=== PATIENT | female | born 1940 | race Caucasian/White ===

== ENCOUNTER 2018-04-25 09:39 | Observation (INO) ==
--- NOTE | 2018-04-25 10:06 | MH ---
cc: Misa Dupree MD DATE OF ADMISSION: 04/25/2018 ADMITTING DIAGNOSIS: Failed left knee arthroplasty, now being admitted for revision of at least the liner and possibly the whole knee. PAST MEDICAL HISTORY: The patient had the left total knee done in December 2003 using a Biomet component, size 65 press-fit femur, 10 insert, and a 67 tibial surface extra small patella. The patient also has a history of atrial fibrillation for which she has been on Eliquis, that was stopped several days ago. She has a history of hypertension, hypothyroidism, and sciatica. She also has a history of a recent urinary tract infection with E. coli, that has been treated. CURRENT MEDICATIONS: 1. Advair. 2. Cefdinir. 3. Clotrimazole. 4. Betamethasone. 5. Digoxin. 6. Levothyroxine. 7. Eliquis. PREVIOUS SURGERIES: Include a gastric bypass as well as the left total knee. REVIEW OF SYSTEMS: Noncontributory. FAMILY HISTORY: Noncontributory. SOCIAL HISTORY: She does not smoke. She drinks alcohol occasionally. ALLERGIES: ALLERGIC TO MORPHINE AND SULFA. POSSIBLE PENICILLIN ALLERGY, ALTHOUGH THE PATIENT STATES SHE IS NOT. SHE STATES SHE DID HAVE AN ALLERGIC REACTION TO STERI-STRIPS WELL. PHYSICAL EXAMINATION: GENERAL: We find a 77-year-old female, well-developed, well-nourished, oriented x 3, complaining of pain and instability of the left knee. VITAL SIGNS: Blood pressure 118/80, pulse 57 and regular, respirations 16, temperature 97.9, pulse oximetry 97% on room air. HEENT: Eyes PERRLA, EOMI. Ears, nose, and mouth are clear. NECK: Supple. LUNGS: Clear. HEART: Regular rate. ABDOMEN: Soft, positive bowel sounds, nontender. EXTREMITIES: Reveal the left knee to be tender with 2+ varus/valgus instability. Neurovascularly intact to her toes. 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 PLAN: She understands the procedure well and plans on going home with home health care after a surgical stay in the hospital. She does have a prescription for postoperative pain control in the office. J. Teodoro Dupree MD JRR/lr , 09:02 AM , 09:08 AM
[2018-04-25] MEDS ORDERED: Clindamycin 900 mg/NS Premix 900 MG/50 ML PIGGYBACK IV.SIG SCH (10:45)
[2018-04-25] MEDS ORDERED: Chlorhexidine 4% Topical 120 APPLIC/120 ML Bottle TOPICAL SCH (10:45)
[2018-04-25] MEDS ORDERED: Clindamycin Inj 900 MG/6 ML Vial ONE (10:50)
[2018-04-25] MEDS ORDERED: Metoprolol Tartrate 25 MG Tablet PO ONE (11:15)
[2018-04-25] MEDS ORDERED: Chlorhexidine Gluconate 2% 1 Pack (2 Cloths) TOPICAL ONE (11:15)
[2018-04-25] MEDS ORDERED: Sodium Chlor 0.9% Inj 80 ML, Bupivacaine Liposo PF 1.3% Inj 20 ML, Bupivacaine PF 0.25%... P-ARTICULR SCH ×3 (11:30)
[2018-04-25] MEDS ORDERED: Tranexamic Acid Inj 1,035 MG in Sodium Chlor 0.9% Inj 100 ML IV.SIG SCH (11:30)
[2018-04-25] MEDS ORDERED: Sodium Chlor 0.9% Inj 500 ML IV.CONT ONE (11:30)
[2018-04-25] MEDS ORDERED: Bupivacaine/Dextrose 0.75% Inj 2 ML Ampul ONE (12:33)
[2018-04-25] MEDS ORDERED: Propofol Inj 500 MG/50 ML Vial ONE (12:34)
[2018-04-25] MEDS ORDERED: Bupivacaine Liposomal PF 1.3% Inj 20 ML Vial ONE (12:52)
[2018-04-25] MEDS ORDERED: Lidocaine PF 1% Inj 5 ML Syringe OTHER ONE (13:15)
[2018-04-25] MEDS ORDERED: Glycopyrrolate Inj 1 MG/5 ML Syringe IV.PUSH ONE (13:15)
[2018-04-25] MEDS ORDERED: Esmolol Bolus Inj 100 MG/10 ML Vial IV.PUSH ONE (13:15)
[2018-04-25] MEDS ORDERED: Neostigmine Inj 5 MG/5 ML Syringe IV.PUSH ONE (13:15)
[2018-04-25] MEDS ORDERED: Acetaminophen 500 MG Tablet PO PRN (13:17)
[2018-04-25] MEDS ORDERED: Post-op Orders (for Pharmacy) OTHER STA (13:21)
[2018-04-25] MEDS ORDERED: Bisacodyl 10 MG Supp RECTAL PRN (13:21)
--- NOTE | 2018-04-25 13:32 | P.DCO ---
- Diagnosis (1) Status post revision of total replacement of left knee Status: Acute - Physical Therapy Order: Evaluate and treat, Improve ambulation, Strength and gait training - Home Health Nursing Order: Medical education - Case Management Consult Yes - Certification I have seen patient Gayla Ortega on 04/25/18. My clinical findings support the need for the requested home health care services because: Limited ability to care for self, High risk of falls I certify that my clinical findings support that this patient is homebound because: Post-op weakness, Unsafe to leave home unassisted
--- NOTE | 2018-04-25 15:34 | P.BOP ---
- Preoperative Diagnosis (1) Failed total left knee replacement - Postoperative Diagnosis (1) Status post revision of total replacement of left knee Date of procedure: 04/25/18 Procedure: Revision Left Total Knee Implants: see implant records Anesthesia: GETA Surgeon: Misa Dupree MD Desk Representative: Dixie Macias Estimated blood loss (mL): 200 Tourniquet time (min): 24 Urine output (mL): 0 (no francis) Pathology: other (Left knee joint fluid) Condition: stable Disposition: PACU
[2018-04-25] MEDS ORDERED: fentaNYL Citrate Inj 100 MCG/2 ML Ampul ONE (15:35)
[2018-04-25] MEDS ORDERED: *HYDROmorphone PF Inj 1 MG/ML Ampul PERIprocedural Use ONLY ONE (15:45)
--- NOTE | 2018-04-25 16:07 | XR ---
EXAM DATE: 04/25/2018 1:21 PM EDT AGE/SEX: 77 years / Female INDICATIONS: Left knee total arthroplasty. CLINICAL DATA: This is the patient's initial encounter. Patient reports that signs and symptoms have been present for 1 day and indicates a pain score of 5/10. MEDICAL/SURGICAL HISTORY: None. None. COMPARISON: [facility], CT KNEE W/O CONTRAST, LEFT, 01/30/2018. . FINDINGS: A total knee arthroplasty is noted. The tibial and femoral components appear well seated. No fracture or dislocation. CONCLUSION: Status post left total knee arthroplasty. Electronically signed by: Edmundo Lopez MD 04/25/2018 4:05 PM EDT
--- NOTE | 2018-04-25 16:08 | MP ---
cc: Misa Dupree MD DATE OF OPERATION: PREOPERATIVE DIAGNOSIS: Mechanical instability left total knee arthroplasty. POSTOPERATIVE DIAGNOSIS: Mechanical instability left total knee arthroplasty. PROCEDURE PERFORMED: Revision of left total knee arthroplasty with liner exchange. SURGEON: Misa Dupree MD. RESEARCH COMPUTING SPECIALIST: MARTHA Lin. ANESTHESIA: General intubation and block. PROCEDURE: The patient was brought to the operating room, placed on the operating table in supine position. After successful induction of general anesthesia, the patient's left knee, thigh, and leg were prepped and draped in the usual manner. A tourniquet inflated on the left upper thigh and set to 300 mmHg pressure after exsanguination of the left lower extremity. Anteromedial incision was then made through the old incision, 10 inches in length, centering over the patella, carried down through subcutaneous tissue through the deep fascia to the joint. Clear serous fluid removed and sent to the lab for STAT Gram stain, which revealed few white cells, no bacteria seen. The knee was flexed and debrided of scar tissue. The liner between the femur and tibia was then removed by removing the clip and then used an osteotome to remove the liner. Liner was found to be extremely torn up and thinned out from use and discarded. The wound irrigated copiously and fragments of the plastic liner were removed all around the knee joint. The femur was found to be intact. The tibia found to be intact. No loosening noted on either side of the femur or tibia and the patella plastic was intact and found to be firmly fixed to the bone and left alone after scar tissue debrided from around it. Different size liners were then tried, found to be most stable with a size 12 x 67, which was selected and placed into the knee joint and clipped into place using the Biomet liner lyles clip. Full range of motion of the knee was then appreciated with no instability and 120 mL of Exparel used around the knee joint for extra pain control. The tourniquet had been deflated. Total tourniquet time was 24 minutes at 300 mmHg pressure. Meticulous hemostasis achieved. The deep fascia was approximated with running #2 Quill. Subcutaneous tissue approximated using interrupted and running 3-0 and 4-0 Quill and Prineo dressing and knee immobilizer. No drain utilized. Estimated blood loss 200 mL. The patient tolerated the procedure well and left the operating room in satisfactory condition. Dixie Macias APRN was present during the entire procedure to include patient positioning and the procedure. The medical necessity of the nurse practitioner assistant golf professional was indicated in this case due to the surgical complexity of the case itself and during the surgical case, the surgical technologist was working the back table while my surgical technologist, OSCAR, was directly assisting me. J. Teodoro Dupree MD JRLavinia/rd , 02:59 PM , 03:09 PM
[2018-04-25] MEDS ORDERED: Tranexamic Acid Inj 1,000 MG in Sodium Chlor 0.9% Inj 100 ML IV.SIG SCH (17:00)
[2018-04-25] MEDS: Clindamycin 600 mg/NS Premix 600 MG/50 ML PIGGYBACK IV.SIG SCH (22:38)
[2018-04-25] MEDS: Senna/Docusate Sodium 8.6/50 MG Tablet PO SCH (22:42)
[2018-04-26] MEDS: Clindamycin 600 mg/NS Premix 600 MG/50 ML PIGGYBACK IV.SIG SCH ×2 (05:26→14:16)
[2018-04-26] MEDS: Levothyroxine 125 MCG Tablet PO SCH (05:31)
[2018-04-26 08:04] LABS: Hematocrit 36.7 % (35.0-46.0); Hemoglobin 12.4 gm/dL (11.6-15.3)
[2018-04-26] MEDS: Senna/Docusate Sodium 8.6/50 MG Tablet PO SCH ×2 (08:45→21:11)
[2018-04-26] MEDS: Ferrous Sulfate 325 MG Tablet PO SCH (08:45)
[2018-04-26] MEDS: Digoxin 125 MCG Tablet PO SCH (08:45)
[2018-04-26] MEDS: Metoprolol Tartrate 50 MG Tablet PO SCH (08:45)
--- NOTE | 2018-04-26 12:31 | P.PNOP ---
Subjective Interval history: Pt comfortable today. No complaints. Physical Exam Vital signs: Vital Signs 04/25/18 12:55 04/25/18 12:58 04/25/18 15:29 Temperature 97.0 F L Pulse Rate 60 76 Respiratory Rate 15 Blood Pressure 154/90 H Pulse Oximetry 100 97 04/25/18 15:45 04/25/18 16:00 04/25/18 16:15 Temperature 96.5 F L Pulse Rate 73 56 L 60 Respiratory Rate 16 16 15 Blood Pressure 150/63 H 175/76 H 165/66 H Pulse Oximetry 99 98 100 04/25/18 16:30 04/25/18 16:50 04/25/18 20:00 Temperature 97.5 F L 97.3 F L Pulse Rate 60 62 60 Respiratory Rate 17 18 18 Blood Pressure 165/65 H 153/74 H 114/80 Pulse Oximetry 100 100 100 04/26/18 00:00 04/26/18 04:00 04/26/18 08:00 Temperature 97.5 F L 97.5 F L 97.7 F Pulse Rate 49 L 55 L 62 Respiratory Rate 17 17 18 Blood Pressure 141/61 H 134/59 L 119/60 Pulse Oximetry 99 96 99 Intake & Output 04/25/18 04/26/18 04/26/18 18:59 06:59 18:59 Intake Total 2160.35 / 2160.35 1088 / 1088 Output Total 200 / 200 Balance 1960.35 / 1960.35 1088 / 1088 Weight 103.5 kg 103.5 kg Intake: IV 1160.35 / 1160.35 1088 / 1088 LR 1000 mL Inj 1,000 ML @ 80 1000 / 1000 988 / 988 mls/hr IV.CONT .[id number] [facility] Rx# :[id number] Cleocin 600 mg/NS Premix 600 mg 100 / 100 In 50 ml @ 100 mls/hr IV.SIG Q8HR [facility] Rx#:[id number] Cleocin 900 mg/NS Premix 900 mg 50 / 50 In 50 ml @ 100 mls/hr IV.SIG MANAGER OF ENGINEERING [facility] Rx#:[id number] Cyklokapron Inj 1,035 MG In NS 110.35 / 110.35 Inj 100 ML @ 200 mls/hr IV.SIG ONCE [facility] Rx#:[id number] Oral 0 / 0 Anesthesia Amount 1000 / 1000 Output: Estimated Blood Loss 200 / 200 Other: # Voids 3 Date of Last Bowel Movement 04/24/18 04/24/18 04/24/18 Weight On Admission 103.5 kg - Constitutional no acute distress Results - Labs CBC & Chem 7: 04/26/18 07:19 Laboratory Results - last 24 hr 04/26/18 07:19 Hgb 12.4 Hct 36.7 Microbiology 04/25/18 14:00 Wound - Knee Gram Stain - Final - Imaging Impressions Knee X-Ray 04/25/18 13:21 CONCLUSION: Status post left total knee arthroplasty. Assessment and Plan - Problem List (1) Status post revision of total replacement of left knee Code(s): Z96.652 - Presence of left artificial knee joint Status: Acute - Attending Attestation Attending Attestation: Dressing and wound dry and intact. No blisters. NV intact to toes. Cont PT. Plan home tomorrow with C and PT. May shower.
[2018-04-26 20:47] VITALS: RESP 16
[2018-04-27 00:30] VITALS: TEMP 97.7
[2018-04-27] MEDS: Levothyroxine 125 MCG Tablet PO SCH (05:23)
[2018-04-27] MEDS: Digoxin 125 MCG Tablet PO SCH (08:02)
[2018-04-27] MEDS: Senna/Docusate Sodium 8.6/50 MG Tablet PO SCH (08:02)
[2018-04-27] MEDS: Metoprolol Tartrate 50 MG Tablet PO SCH (08:03)
[2018-04-27] MEDS: Ferrous Sulfate 325 MG Tablet PO SCH (08:03)
[2018-04-27 08:43] VITALS: BP 130/63; PULSE 59; O2SAT 95
--- NOTE | 2018-04-27 10:05 | P.PNOP ---
Subjective Interval history: Patient mostly comfortable with slightly more pain today than yesterday. Physical Exam Vital signs: Vital Signs 04/26/18 12:00 04/26/18 16:00 04/26/18 20:00 Temperature 97.5 F L 97.6 F 97.5 F L Pulse Rate 67 51 L 77 Respiratory Rate 17 18 16 Blood Pressure 99/53 L 105/61 112/67 Pulse Oximetry 99 96 96 04/27/18 00:00 04/27/18 08:00 Temperature 97.7 F 97.7 F Pulse Rate 41 L 59 L Respiratory Rate 16 16 Blood Pressure 136/64 130/63 Pulse Oximetry 98 95 Intake & Output 04/26/18 04/27/18 04/27/18 18:59 06:59 18:59 Intake Total 1310 / 1310 Balance 1310 / 1310 Weight 103.5 kg Intake: IV 350 / 350 LR 1000 mL Inj 1,000 ML @ 80 300 / 300 mls/hr IV.CONT .[id number] [facility] Rx# :[id number] Cleocin 600 mg/NS Premix 600 mg 50 / 50 In 50 ml @ 100 mls/hr IV.SIG Q8HR [facility] Rx#:[id number] Oral 960 / 960 Other: # Voids 7 3 Date of Last Bowel Movement 04/24/18 04/24/18 - Constitutional no acute distress Results - Labs CBC & Chem 7: 04/26/18 07:19 Microbiology 04/25/18 14:00 Wound - Knee Gram Stain - Final 04/25/18 14:00 Wound - Knee Wound Culture - Preliminary No growth in 48 hours Assessment and Plan - Problem List (1) Status post revision of total replacement of left knee Code(s): Z96.652 - Presence of left artificial knee joint Status: Acute - Attending Attestation Attending Attestation: Patient sitting in a chair. The wound is clean and dry with no drainage. She is neurovascularly intact to her toes and has no calf tenderness. Plan is for the patient to go home today with home health care and physical therapy. Return to the office in 10 days time for recheck. Patient has p.o. pain meds and anticoagulation at home.
[2018-04-27 11:25] LABS: Hematocrit 36.5 % (35.0-46.0); Hemoglobin 12.5 gm/dL (11.6-15.3)
--- NOTE | 2018-04-27 17:09 | MD ---
cc: Misa Dupree MD DATE OF DISCHARGE: 04/27/2018 ADMITTING DIAGNOSIS: Failed left total knee arthroplasty. DISCHARGE DIAGNOSIS: Failed left total knee arthroplasty. HOSPITAL COURSE: This pleasant 77-year-old female who was admitted on 04/25/2018, at which time she underwent a revision of her total knee with liner exchange for failed knee. She received a course of prophylactic IV antibiotics and within 24 hours started on anticoagulation therapy. She continued to improve with physical therapy, tolerating food and fluid well, remained afebrile, vital signs stable. Neurovascularly intact to her toes and the wound continued to heal with no evidence of blistering from the Prineo dressing. She was discharged on second postoperative day in good condition with instructions for home health care, physical therapy and followup in the office. The patient has pain medicine and anticoagulation therapy at home. J. MD AGNIESZKA Cordova/candi , 10:08 AM , 10:15 AM
== END 2018-04-27 14:00 | disposition home health service (06) ==
LOC: HSDC 09:39 → HSDI 09:39 → EDSTATUS 13:30 → N06 17:10
PROVIDERS: ADMIT Surgery; ATTEND Surgery